=== PATIENT | female | born 1955 | race Caucasian/White ===

== ENCOUNTER 2016-12-08 11:24 | Emergency (ER) | payer BC ==
[~2016-12-08] VITALS: Ht 170.2 cm; Wt 62.0 kg
[~2016-12-08 11:24] MED LIST: CYCL-36 PO; TRAM50 PO
[2016-12-08 11:39] VITALS: BP 179/100; PULSE 74; RESP 18; TEMP 97.6; O2SAT 97
[2016-12-08] MEDS ORDERED: BYST10TA2 PO (12:03)
[2016-12-08] MEDS ORDERED: ALPR.5 PO (12:03)
--- NOTE | 2016-12-08 12:14 | PD ---
HPI Chief Complaint: Nosebleed Time Seen by Provider: 12:11 Travel History International Travel<30 days: No Contact w/Intl Traveler<30days: No Traveled to known affect area: No History of Present Illness HPI This 61-year-old female says she was [facility] [employer]. She felt a trickle from her nose and she had bleeding from the right side of the nose. It started to gush and has subsequently stopped after she put some pressure on it. She had taken a baby aspirin this morning for the first time in a while. She has a history of hypertension and takes Bystolic 10 mg twice daily. The blood pressure is usually well-controlled. PFSH Past Medical History Anxiety: Yes Heart Rhythm Problems: No Cardiac Catheterization: No Cardiovascular Problems: Yes (HTN) High Cholesterol: No Congestive Heart Failure: No Diabetes: No Diminished Hearing: No Hypertension: Yes Myocardial Infarction: No Tetanus Vaccination: > 5 Years Influenza Vaccination: Yes ?: Not Menopausal: Yes Past Surgical History Coronary Artery Bypass Graft: No Social History Alcohol Use: Yes (WEEKLY, 2 GLASSES OF WINE) Tobacco Use: No Substance Use: No Allergies-Medications (Allergen,Severity, Reaction): Coded Allergies: Morphine (Verified Adverse Reaction, Mild, VOMITING, 12/08/16) Reported Meds & Prescriptions Reported Meds & Active Scripts Active Reported Xanax (Alprazolam) 0.5 Mg Tab 0.5 Mg PO HS PRN Bystolic (Nebivolol) 10 Mg Tab 10 Mg PO BID Review of Systems General / Constitutional: No: Fever, Chills Eyes: No: Diploplia, Blurred Vision HENT: Positive: Nosebleed, No: Headaches, Vertigo Cardiovascular: No: Chest Pain or Discomfort, Palpitations Respiratory: No: Cough, Shortness of Breath Gastrointestinal: No: Vomiting, Diarrhea Genitourinary: No: Urgency Skin: No Rash Neurologic: No: Weakness Endocrine: No: Heat Intolerance, Cold Intolerance Hematologic/Lymphatic: No: Easy Bruising Physical Exam Narrative GENERAL: [-] SKIN: Focused skin assessment warm/dry. HEAD: Atraumatic. Normocephalic. EYES: Pupils equal and round. No scleral icterus. No injection or drainage. ENT: No nasal bleeding or discharge. There is no bleeding at present. There is mild erythema of the mucosa. Bleeding site is not seen Mucous membranes pink and moist. NECK: Trachea midline. No JVD. MUSCULOSKELETAL: No obvious deformities. No clubbing. No cyanosis. No edema. NEUROLOGICAL: Awake and alert. No obvious cranial nerve deficits. Motor grossly within normal limits. Normal speech. PSYCHIATRIC: Appropriate mood and affect; insight and judgment normal. Data Data Last Documented VS Vital Signs Date Time Temp Pulse Resp B/P Pulse Ox O2 Delivery O2 Flow Rate FiO2 12/08/16 11:39 97.6 74 18 179/100 97 MDM Medical Decision Making Medical Screen Exam Complete: Yes Emergency Medical Condition: Yes Medical Record Reviewed: Yes Differential Diagnosis Differential includes epistaxis, hypertension Narrative Course Patient had an episode of epistaxis which has stopped. She is stable for discharge Diagnosis Primary Impression: Epistaxis Disposition: 01 DISCHARGE HOME Condition: Stable Elian Marti MD Dec 08, 2016 12:14
[2016-12-08 12:30] VITALS: BP 190/95
[2016-12-08 12:39] VITALS: BP 205/98
[2016-12-08] MEDS ORDERED: cloNIDine HCL 0.1 MG TAB PO ONE (12:45)
[2016-12-08 13:05] VITALS: BP 190/87
== END 2016-12-08 13:16 | disposition home or self-care (01) ==
LOC: PHED 11:24
DX: R04.0 Epistaxis (principal); I10 Essential (primary) hypertension; Z86.59 Personal history of other mental and behavioral disorders; Z86.79 Personal history of other diseases of the circulatory system
CPT/HCPCS: 99283